=== PATIENT | female | born 1940 | race Hispanic/Latino ===

== ENCOUNTER 2021-06-06 16:03 | Emergency (ER) | payer MEDICARE, OTHER ==
[~2021-06-06] VITALS: Ht 165.1 cm; Wt 69.9 kg
[~2021-06-06 16:03] MED LIST: ASPIR 8181 MG PO; CIPRO500 MG PO; CITALOPRAM HBR40 MG PO; FERROUS SULFAT325 MG PO; GLIMEPIRIDE4 MG PO; JANUVIA100 MG PO; LISINOPRIL10 MG PO; METFORMIN HCL500 M1 PO; METFORMIN HCL500 MG PO; OXYBUTYNIN CHLO15 MG PO; SIMVASTATIN20 MG PO
[2021-06-06 18:57] VITALS: BP 168/72
== END 2021-06-06 18:59 | disposition home or self-care (01) ==
LOC: ER 16:06
DX: M25.551 Pain in right hip (principal); M54.31 Sciatica, right side; R53.83 Other fatigue; E11.9 Type 2 diabetes mellitus without complications; E78.5 Hyperlipidemia, unspecified; D64.9 Anemia, unspecified; E78.00 Pure hypercholesterolemia, unspecified
CPT/HCPCS: 93971; 99283

== ENCOUNTER 2021-12-03 17:28 | Inpatient (IN) | payer MEDICARE ==
[~2021-12-03] VITALS: Ht 165.1 cm; Wt 80.7 kg
[2021-12-03 17:52] LABS: BASOPHILS # (AUTO) 0.1 (0.0-0.1); BASOPHILS % 0.7 % (0.0-1.0); EOSINOPHILS # (AUTO) 0.3 (0.0-0.4); EOSINOPHILS % 3.6 % (0.0-6.0); HEMATOCRIT 39.2 % (34.2-44.1); LYMPHOCYTES # (AUTO) 1.5 (1.0-3.2); LYMPHOCYTES % 16.8 % (18.0-39.1); MEAN CORPUSCULAR HEMOGLOBIN 28.6 pg (28-32); MEAN CORPUSCULAR HGB CONC 30.6 g/dL (31-35); MEAN CORPUSCULAR VOLUME 93.6 fL (81-99); MONOCYTES # (AUTO) 0.9 (0.2-0.8); MONOCYTES % 9.7 % (4.4-11.3); NEUTROPHILS # (AUTO) 6.3 (2.1-6.9); NEUTROPHILS % 68.4 % (38.7-80.0); PLATELET COUNT 166 x10e3/uL (140-360); RED BLOOD COUNT 4.19 x10e6/uL (3.6-5.1)
[2021-12-03 18:12] LABS: ALBUMIN/GLOBULIN RATIO 0.8 (0.8-2.0); ANION GAP 11.3 mmol/L (8-16); CALCIUM 8.2 mg/dL (8.4-10.2); CREATININE, SERUM 1.14 mg/dL (0.57-1.11); POTASSIUM 4.3 mmol/L (3.5-5.1)
[2021-12-03 18:18] LABS: CREATINE KINASE MB 1.7 ng/mL (0-5.0)
[2021-12-03] MEDS ORDERED: ONDANSETRON HCL INJ 2MG/ML 2ML 2 MG/ML VIAL IV PRN (19:30)
[2021-12-03 20:40] VITALS: BP 135/59
[2021-12-03 21:57] VITALS: BP 135/59
[2021-12-03 22:04] VITALS: BP 135/59
[2021-12-03] MEDS ORDERED: FAMOTIDINE20 MG PO (22:08)
[2021-12-03] MEDS ORDERED: FUROSEMIDE40 MG PO (22:09)
[2021-12-03] MEDS ORDERED: NEURONTIN300 MG PO (22:09)
[2021-12-03] MEDS ORDERED: NOVOLIN N100 UNIT/1 SQ (22:13)
[2021-12-03] MEDS ORDERED: HUMULIN-R100 UNITS/ SQ (22:13)
[2021-12-03] MEDS ORDERED: METOPROLOL TART25 MG PO (22:14)
[2021-12-03] MEDS: FUROSEMIDE INJ 10 MG/ML 4 ML VIAL IV SCH (22:14)
[2021-12-03] MEDS ORDERED: SODIUM CHLORIDE 0.9% 50ML 50 ML ONE (22:27)
[2021-12-03] MEDS ORDERED: IOPAMIDOL 370 MG/ML 200 ML INFUS..BTL INJ ONE (22:27)
[2021-12-04] VITALS (8 sets, daily range): BP systolic 124–145; BP diastolic 55–89
[2021-12-04 05:33] LABS: BASOPHILS # (AUTO) 0.1 (0.0-0.1); BASOPHILS % 0.8 % (0.0-1.0); EOSINOPHILS # (AUTO) 0.3 (0.0-0.4); EOSINOPHILS % 3.9 % (0.0-6.0); HEMATOCRIT 36.3 % (34.2-44.1); HEMOGLOBIN 11.2 g/dL (12.0-16.0); LYMPHOCYTES # (AUTO) 1.5 (1.0-3.2); LYMPHOCYTES % 17.4 % (18.0-39.1); MEAN CORPUSCULAR HEMOGLOBIN 28.8 pg (28-32); MEAN CORPUSCULAR HGB CONC 30.9 g/dL (31-35); MEAN CORPUSCULAR VOLUME 93.3 fL (81-99); MONOCYTES # (AUTO) 0.8 (0.2-0.8); MONOCYTES % 9.3 % (4.4-11.3); NEUTROPHILS # (AUTO) 5.9 (2.1-6.9); NEUTROPHILS % 68.2 % (38.7-80.0); PLATELET COUNT 153 x10e3/uL (140-360); RED BLOOD COUNT 3.89 x10e6/uL (3.6-5.1); RED CELL DISTRIBUTION WIDTH 15.1 % (11.7-14.4)
[2021-12-04 06:02] LABS: ALBUMIN 2.8 g/dL (3.5-5.0); ALBUMIN/GLOBULIN RATIO 0.9 (0.8-2.0); ANION GAP 9.8 mmol/L (8-16); CALCIUM 8.2 mg/dL (8.4-10.2); CREATININE, SERUM 1.14 mg/dL (0.57-1.11); POTASSIUM 3.8 mmol/L (3.5-5.1)
[2021-12-04 06:59] LABS: CREATINE KINASE MB 1.2 ng/mL (0-5.0)
[2021-12-04] MEDS ORDERED: DIGOXIN125 MCG PO (08:17)
[2021-12-04] MEDS: FUROSEMIDE INJ 10 MG/ML 4 ML VIAL IV SCH ×2 (09:44→21:59)
[2021-12-04] MEDS ORDERED: DEXTROSE 50% SYRINGE 50 ML IV PRN (09:45)
[2021-12-04] MEDS: INSULIN LISPRO 100 UNIT/1 ML 3ML VIAL SQ SCH ×5 (12:15→22:02)
[2021-12-04 14:08] LABS: BACTERIA,URINE MODERATE /HPF; CLARITY,URINE SL CLOUDY (CLEAR); COLOR,URINE YELLOW (YELLOW); KETONES,URINE NEGATIVE (NEGATIVE); LEUKOCYTE ESTERASE ,URINE NEGATIVE (NEGATIVE); NITRITE,URINE NEGATIVE (NEGATIVE); PROTEIN,URINE DIPSTICK NEGATIVE (NEGATIVE); RBC,URINE 0-5 /HPF (0-5); URINE UROBILINOGEN 0.2 mg/dL (0.2 - 1)
[2021-12-04] MEDS: FAMOTIDINE 20 MG TAB PO SCH (16:54)
[2021-12-04] MEDS: POTASSIUM CHLORIDE 10MEQ EA PO SCH (16:54)
[2021-12-04] MEDS: METOPROLOL TARTRATE 25 MG TAB PO SCH ×2 (16:54→22:00)
[2021-12-04] MEDS ORDERED: NPH, HUMAN INSULIN ISOPHANE 100 UNIT/1 ML 3ML VIAL SQ SCH (21:00)
[2021-12-04] MEDS: DIGOXIN 0.125 MG TAB PO SCH (21:59)
[2021-12-04] MEDS: SIMVASTATIN 20 MG TAB PO SCH (22:00)
[2021-12-04] MEDS: GABAPENTIN 300 MG CAP PO SCH (22:00)
[2021-12-05] VITALS (7 sets, daily range): BP systolic 111–139; BP diastolic 56–72
[2021-12-05 05:52] LABS: BASOPHILS # (AUTO) 0.1 (0.0-0.1); BASOPHILS % 0.5 % (0.0-1.0); EOSINOPHILS # (AUTO) 0.5 (0.0-0.4); EOSINOPHILS % 5.5 % (0.0-6.0); HEMATOCRIT 37.3 % (34.2-44.1); HEMOGLOBIN 11.7 g/dL (12.0-16.0); LYMPHOCYTES # (AUTO) 1.9 (1.0-3.2); LYMPHOCYTES % 19.7 % (18.0-39.1); MEAN CORPUSCULAR HEMOGLOBIN 29.1 pg (28-32); MEAN CORPUSCULAR HGB CONC 31.4 g/dL (31-35); MEAN CORPUSCULAR VOLUME 92.8 fL (81-99); MONOCYTES # (AUTO) 0.8 (0.2-0.8); MONOCYTES % 8.5 % (4.4-11.3); NEUTROPHILS # (AUTO) 6.3 (2.1-6.9); NEUTROPHILS % 65.4 % (38.7-80.0); PLATELET COUNT 165 x10e3/uL (140-360); RED BLOOD COUNT 4.02 x10e6/uL (3.6-5.1); RED CELL DISTRIBUTION WIDTH 14.9 % (11.7-14.4)
[2021-12-05 06:15] LABS: ANION GAP 12.4 mmol/L (8-16); CALCIUM 8.6 mg/dL (8.4-10.2); CREATININE, SERUM 1.2 mg/dL (0.57-1.11); POTASSIUM 3.4 mmol/L (3.5-5.1)
[2021-12-05] MEDS: INSULIN LISPRO 100 UNIT/1 ML 3ML VIAL SQ SCH ×5 (07:16→21:45)
[2021-12-05] MEDS ORDERED: FUROSEMIDE INJ 10 MG/ML 4 ML VIAL IV SCH ×2 (08:00→10:15)
[2021-12-05] MEDS: METOPROLOL TARTRATE 25 MG TAB PO SCH ×3 (09:00→20:56)
[2021-12-05] MEDS: POTASSIUM CHLORIDE 10MEQ EA PO SCH ×2 (09:00→18:25)
[2021-12-05] MEDS: CITALOPRAM HYDROBROMIDE 20 MG TAB PO SCH (09:00)
[2021-12-05] MEDS: ASPIRIN 81 MG CHEW TAB PO SCH (09:00)
[2021-12-05] MEDS: VALSARTAN/SACUBITRIL 24MG/26MG 1 EA TAB PO SCH ×2 (10:15→20:56)
[2021-12-05] MEDS: APIXAB 2.5 MG TABLET PO SCH ×2 (10:15→18:24)
[2021-12-05] MEDS: FAMOTIDINE 20 MG TAB PO SCH (10:30)
[2021-12-05] MEDS: FUROSEMIDE INJ 10 MG/ML 4 ML VIAL IV SCH (20:56)
[2021-12-05] MEDS: GABAPENTIN 300 MG CAP PO SCH (20:56)
[2021-12-05] MEDS: SIMVASTATIN 20 MG TAB PO SCH (20:56)
[2021-12-05] MEDS: DIGOXIN 0.125 MG TAB PO SCH (20:56)
[2021-12-05] MEDS ORDERED: INSULIN GLARGINE 100 UNITS/ML VIAL SQ SCH (22:00)
[2021-12-05] MEDS ORDERED: CEFTRIAXONE 1 GM in SODIUM CHLORIDE 0.9% 50ML 50 ML IV SCH (22:00)
[2021-12-05] MEDS ORDERED: SODIUM CHLORIDE 0.9% 250ML 250 ML ONE (22:52)
[2021-12-06 00:25] VITALS: BP 107/54
[2021-12-06 05:41] VITALS: BP 111/47
[2021-12-06 07:00] LABS: BASOPHILS # (AUTO) 0.1 (0.0-0.1); BASOPHILS % 0.7 % (0.0-1.0); EOSINOPHILS # (AUTO) 0.5 (0.0-0.4); EOSINOPHILS % 4.7 % (0.0-6.0); HEMATOCRIT 39.8 % (34.2-44.1); HEMOGLOBIN 12.5 g/dL (12.0-16.0); LYMPHOCYTES # (AUTO) 1.7 (1.0-3.2); LYMPHOCYTES % 16.2 % (18.0-39.1); MEAN CORPUSCULAR HEMOGLOBIN 29.1 pg (28-32); MEAN CORPUSCULAR HGB CONC 31.4 g/dL (31-35); MEAN CORPUSCULAR VOLUME 92.6 fL (81-99); MONOCYTES # (AUTO) 0.8 (0.2-0.8); MONOCYTES % 8.1 % (4.4-11.3); NEUTROPHILS # (AUTO) 7.1 (2.1-6.9); NEUTROPHILS % 69.8 % (38.7-80.0); PLATELET COUNT 198 x10e3/uL (140-360)
[2021-12-06 07:16] LABS: ANION GAP 12.7 mmol/L (8-16); CALCIUM 8.3 mg/dL (8.4-10.2); CREATININE, SERUM 1.07 mg/dL (0.57-1.11); MAGNESIUM 1.4 MG/DL (1.3-2.1); POTASSIUM 3.7 mmol/L (3.5-5.1)
[2021-12-06] MEDS: INSULIN LISPRO 100 UNIT/1 ML 3ML VIAL SQ SCH ×3 (07:30→15:25)
[2021-12-06 08:00] VITALS: BP 111/47
[2021-12-06 08:17] VITALS: BP 132/61
[2021-12-06] MEDS ORDERED: FAMOTIDINE 20 MG TAB PO SCH (09:00)
[2021-12-06] MEDS: POTASSIUM CHLORIDE 10MEQ EA PO SCH ×2 (10:33→16:28)
[2021-12-06] MEDS: ASPIRIN 81 MG CHEW TAB PO SCH (10:33)
[2021-12-06] MEDS: APIXAB 2.5 MG TABLET PO SCH ×2 (10:33→16:28)
[2021-12-06] MEDS: CITALOPRAM HYDROBROMIDE 20 MG TAB PO SCH (10:33)
[2021-12-06] MEDS: FUROSEMIDE INJ 10 MG/ML 4 ML VIAL IV SCH (10:33)
[2021-12-06] MEDS: VALSARTAN/SACUBITRIL 24MG/26MG 1 EA TAB PO SCH (10:33)
[2021-12-06] MEDS: METOPROLOL TARTRATE 25 MG TAB PO SCH ×2 (10:34→15:00)
[2021-12-06] MEDS ORDERED: MAGNESIUM SULFATE 2GM/50ML 50 ML IV ONE (11:00)
[2021-12-06 11:43] VITALS: BP 128/57
[2021-12-06] MEDS ORDERED: ELIQUIS2.5 MG PO (13:09)
[2021-12-06] MEDS ORDERED: Valsartan/Sacubitril 24MG/26MG PO (13:09)
[2021-12-06] MEDS ORDERED: CEFTRIAXONE 2 GM in SODIUM CHLORIDE 0.9% 100 ML IV ONE (13:15)
[2021-12-07] MEDS ORDERED: FUROSEMIDE 40 MG TAB PO SCH (09:00)
== END 2021-12-06 17:49 | disposition home or self-care (01) | DRG 291 ==
LOC: ER 17:32 → ERHOLD 20:07 → MED/SURG3 20:56
PROVIDERS: ADMIT Internal Medicine; ATTEND Internal Medicine
DX: I11.0 Hypertensive heart disease with heart failure (principal); I50.43 Acute on chronic combined systolic (congestive) and diastolic (congestive) heart failure; I48.20 Chronic atrial fibrillation, unspecified; E11.9 Type 2 diabetes mellitus without complications; Z79.01 Long term (current) use of anticoagulants; E78.5 Hyperlipidemia, unspecified; Z88.0 Allergy status to penicillin; R60.0 Localized edema; Z20.822 Contact with and (suspected) exposure to COVID-19
CPT/HCPCS: 36415; 71045; 74177; 80048; 80053; 81001; 82550; 82553; 82948; 83036; 83735; 83880; 84484; 85025; 87086; 87186; 93005; 93306; 96372; 99284; J0696; J1940; J3475; J7050; Q9967; U0002

== ENCOUNTER 2024-10-12 19:05 | Emergency (ER) | payer MEDICARE ==
[~2024-10-12] VITALS: Ht 165.1 cm; Wt 75.3 kg
[~2024-10-12 19:05] MED LIST changes: +DIGOXIN125 MCG PO; +ELIQUIS2.5 MG PO; +FAMOTIDINE20 MG PO; +FUROSEMIDE20 MG PO; +FUROSEMIDE40 MG PO; +GABAPENTIN300 MG PO; +HUMULIN-R100 UNITS/ SQ; +METOPROLOL TART25 MG PO; +NEURONTIN300 MG PO; +NOVOLIN N100 UNIT/1 SQ; +SOLIQUA 100 UNIT3 ML SQ; +Valsartan/Sacubitril 24MG/26MG PO
[2024-10-12 19:06] VITALS: TEMP 97.5
[2024-10-12 19:36] LABS: BASOPHILS # (AUTO) 0.1 (0.0-0.1); BASOPHILS % 0.8 % (0.0-1.0); EOSINOPHILS # (AUTO) 0.2 (0.0-0.4); EOSINOPHILS % 2.1 % (0.0-6.0); HEMATOCRIT 33.3 % (34.2-44.1); HEMOGLOBIN 10.7 g/dL (12.0-16.0); LYMPHOCYTES # (AUTO) 0.8 (1.0-3.2); LYMPHOCYTES % 11.6 % (18.0-39.1); MEAN CORPUSCULAR HEMOGLOBIN 29.1 pg (28-32); MEAN CORPUSCULAR HGB CONC 32.1 g/dL (31-35); MEAN CORPUSCULAR VOLUME 90.5 fL (81-99); MONOCYTES # (AUTO) 0.6 (0.2-0.8); MONOCYTES % 8.9 % (4.4-11.3); NEUTROPHILS # (AUTO) 5.4 (2.1-6.9); NEUTROPHILS % 76.2 % (38.7-80.0); PLATELET COUNT 195 x10e3/uL (140-360); RED BLOOD COUNT 3.68 x10e6/uL (3.6-5.1); RED CELL DISTRIBUTION WIDTH 18.8 % (11.7-14.4); WHITE BLOOD COUNT 7.07 x10e3/uL (4.8-10.8)
[2024-10-12] MEDS: ONDANSETRON HCL INJ 2MG/ML 2ML 2 MG/ML VIAL IV STA (19:56)
[2024-10-12] MEDS: SODIUM CHLORIDE 0.9% 1000ML 1,000 ML IV STA (19:57)
[2024-10-12 20:05] LABS: ALBUMIN 2.7 g/dL (3.5-5.0); ALBUMIN/GLOBULIN RATIO 0.6 (0.8-2.0); ANION GAP 14.6 mmol/L (8-16); BILIRUBIN,TOTAL 1.3 mg/dL (0.2-1.2); CALCIUM 8.2 mg/dL (8.4-10.2); CREATININE, SERUM 1.34 mg/dL (0.57-1.11); POTASSIUM 4.6 mmol/L (3.5-5.1); TOTAL PROTEIN 7.6 g/dL (6.5-8.1)
[2024-10-12 20:11] LABS: TROPONIN I 0.008 ng/mL (0-0.300)
[2024-10-12] MEDS ORDERED: IOPAMIDOL 370 MG/ML 100 ML INFUS..BTL INJ ONE (20:12)
[2024-10-12 21:51] LABS: ABG PCO2 35 mmHg (35-45); ABG PH 7.37 (7.35-7.45)
[2024-10-12 21:52] LABS: ABG HCO3 20 mmol/L (22-26); ABG PO2 194 mmHg (80-105); ABG TCO2 21
[2024-10-12 22:35] VITALS: PULSE 82; RESP 13
[2024-10-12 23:12] VITALS: PULSE 84; RESP 16; O2SAT 100
[2024-10-13 01:04] VITALS: BP 129/74; PULSE 73; RESP 18; TEMP 98.6; O2SAT 98
[2024-10-16 06:54] LABS: ABG HCO3 20 mmol/L (22-26); ABG PCO2 35 mmHg (35-45); ABG PH 7.37 (7.35-7.45); ABG PO2 194 mmHg (80-105); ABG TCO2 21
== END 2024-10-13 00:39 | disposition home or self-care (01) ==
LOC: ER 19:21
DX: R11.2 Nausea with vomiting, unspecified (principal); E87.70 Fluid overload, unspecified; I12.9 Hypertensive chronic kidney disease with stage 1 through stage 4 chronic kidney disease, or unspecified chronic kidney disease; E11.22 Type 2 diabetes mellitus with diabetic chronic kidney disease; N18.9 Chronic kidney disease, unspecified; J90 Pleural effusion, not elsewhere classified; I51.7 Cardiomegaly; K76.0 Fatty (change of) liver, not elsewhere classified; I50.9 Heart failure, unspecified; I48.91 Unspecified atrial fibrillation; E78.5 Hyperlipidemia, unspecified; H40.9 Unspecified glaucoma; N39.3 Stress incontinence (female) (male); F41.9 Anxiety disorder, unspecified; F32.A Depression, unspecified; R94.31 Abnormal electrocardiogram [ECG] [EKG]
CPT/HCPCS: 36415; 36600; 71260; 74177; 80053; 82550; 82805; 83690; 83880; 84484; 85025; 93005; 94799; 99284; J2405; J7030; Q9967